=== PATIENT | male | born 1980 | race Caucasian/White ===

== ENCOUNTER 2018-06-18 08:58 | Outpatient (CLI) ==
--- NOTE | 2018-06-18 10:15 | CT ---
EXAM: CT Abdomen with contrast. CT Pelvis with contrast. HISTORY: Lower abdominal pain and fever. COMPARISON: None available. TECHNIQUE: Multiple axial images of the abdomen and pelvis were obtained following intravenous admin istration of 75 mL of Omnipaque 350, low osmolar. Images were reformatted in the sagittal and dai l plane. FINDINGS: Subsegmental atelectasis noted in the lung bases. No acute osseous abnormality identified . Degenerative changes present in the lower lumbar spine. The liver, gallbladder, pancreas, spleen, adrenal glands, and kidneys are normal. The bowel is normal in course and caliber without evidence for obstruction or inflammatory process. The appendix is normal. Multiple nonenlarged mesenteric and retroperitoneal lymph nodes are present, with the largest lymph node measuring 0.9 cm short axis in the central pelvis on axial image 75. Ti ny fat-containing umbilical hernia noted. No free fluid or free air identified. Urinary bladder is unremarkable.. IMPRESSION: 1. No acute abnormality within the abdomen or pelvis. 2. Nonspecific mesenteric lymph nodes, generally greater in size and number than expected, possibly reactive.
== END 2018-06-18 08:59 | disposition home or self-care (01) ==
LOC: RAD 08:58
PROVIDERS: ATTEND Internal Medicine
DX: R10.31 Right lower quadrant pain (principal); R10.32 Left lower quadrant pain; R50.9 Fever, unspecified
CPT/HCPCS: 36415; 82565